=== PATIENT | female | born 1990 | race Caucasian/White ===

== ENCOUNTER → 2016-10-28 | Day surgery (SDC) | payer OTHER ==
--- NOTE | 2016-10-25 12:00 | History & Physical Pre-Op ---
General Information and HPI History of Present Illness: Flor is a 26-year-old female with a long-standing and worsening complaint of a painful tailor's bunion right foot and associated hammertoe fifth toe right foot. The patient has undergone an extended course of conservative care, including shoe gear and activity modification, rest, immobilization and courses of NSAIDs. None of this is yielded her any significant relief. The patient presents today for preoperative surgical consultation. The patient was referred to our office from Clifton Sharpe DPM. Allergies/Medications Allergies: Coded Allergies: dexamethasone (From [facility]) (Severe, TACCHYCARDIA 10/23/16) Past History Surgical History Pertinent Surgical History: non-contributory Review of Systems Review of Systems: Review of systems unremarkable except for that noted in history of present illness Exam & Diagnostic Data Physical Exam: Lungs clear bilaterally. Heart sounds rate and rhythm regular. Lower extremity physical exam demonstrates intact pedal pulses bilaterally. Pulses dorsalis pedis and posterior tibial arteries are palpable bilaterally. Patient without any sensory or motor deficits. Deep tendon reflexes grossly intact. Patient noted to have same and pain with palpation at the lateral aspect of the fifth metatarsal head and overlying the dorsal proximal interphalangeal joint of the fifth digit. Assessment/Plan Assessment/Plan: Painful tailor's bunion and fifth toe hammertoe right foot. A lengthy discussion reviewing both surgical and conservative options was held the patient at bedside and the patient elected to go forward with surgery despite the risks. As Ranked By This Provider Problem List: 1. Other acquired deformities of right foot Attending MD Review Statement Attending Statement Attending MD Statement: examined this patient
[~2016-10-28] VITALS: Ht 160 cm; Wt 95.3 kg
--- NOTE | 2016-11-02 12:50 | Operative Report ---
Operative/Inv Procedure Report Surgery Date: 10/28/16 Name of Procedure: 1 tailor's bunionectomy right foot 2 arthroplasty fifth toe right foot 3 intraoperative administration of ankle block anesthesia Pre-Operative Diagnosis: 1 tailor's bunion right foot 2 hammertoe fifth toe right foot Post-Operative Diagnosis: The same Estimated Blood Loss: scant Surgeon/Photograph Mounter: PERFECTO WINTERS DPM Anesthesia: moderate sedation, block Operative/Procedure Note Note: After obtaining informed consent the patient was brought to the operating room and placed on the operating table in the supine position. The patient was then securely fastened to the operating table utilizing safety belt. After administration of IV sedation, 10 mL of 0.5% Marcaine plain was infiltrated about the patient's right ankle. A well-padded ankle tourniquet was placed about the patient's right lower extremity. 2 g of Ancef were delivered intravenously times one dose. The right foot and ankle within scrubbed prepped and draped in usual aseptic manner. The right lower extremity was elevated to exsanguinate the limb, at which point the ankle tourniquet was inflated to 250 mmHg. Digits was directed dorsal lateral aspect of the right foot, where a 3 cm linear incision was made over the fifth metatarsophalangeal joint. The skin was incised 15 blade and deepened subtenons tissues. All vital neurovascular structures were identified protected. Dissection was then carried down to the capture structures were linear capsulotomy was performed exposing the lateral eminence. This was then removed sagittal bone saw. The wound was irrigated with normal sterile saline. The deep tissues reports a 4-0 Vicryl and the skin edges reprepped with 4-0 nylon. 2 transversely oriented semielliptical incisions centered at the level of the proximal phalangeal joint were then incised with 15 blade. Dissection continued subtenons tissues and the ellipses skin was freed and passed from the operative field. A transverse tenotomy was then performed exposing the head of the proximal phalanx. This was then removed sagittal bone saw. The extensor tendon was reapproximated 4-0 Vicryl and the skin is reapproximated 4-0 nylon. The incision was dressed with Xeroform 4 x 4' s Kerlix and Hugh wrap. The patient was noted to tolerate both procedure and anesthesia well and the patient was transported from the operating room to recovery by sent stable best assess intact all digits right foot.
== END ==
LOC: STS 07:00
DX: M20.41 Other hammer toe(s) (acquired), right foot (principal); M21.6X1 Other acquired deformities of right foot; F17.200 Nicotine dependence, unspecified, uncomplicated
CPT/HCPCS: 81025; 88304; J1885; J2250